=== PATIENT | male | born 1980 | race Caucasian/White ===

== ENCOUNTER 2018-08-14 12:26 | Inpatient (IN) ==
[2018-08-14] MEDS ORDERED: LOPERAMIDE 2 MG CAPSULE PO PRN (15:10)
[2018-08-14] MEDS ORDERED: cloNIDine 0.1 MG TABLET PO PRN (15:10)
[2018-08-14] MEDS ORDERED: LORazepam 2 MG/1 ML VIAL IV PRN (15:10)
[2018-08-14] MEDS ORDERED: ONDANSETRON 4 MG/2 ML VIAL IV PRN (15:10)
[2018-08-14] MEDS ORDERED: rOPINIRole 1 MG TABLET PO PRN (15:10)
[2018-08-14] MEDS ORDERED: ALUMINUM/MAGNES/SIMETH MAX STR 30 ML UDCUP PO PRN (15:10)
[2018-08-14] MEDS ORDERED: METHOCARBAMOL 500 MG TABLET PO PRN (15:10)
[2018-08-14] MEDS ORDERED: HydrOXYzine PAMOATE 25 MG CAPSULE PO PRN (15:10)
[2018-08-14] MEDS ORDERED: SENNA 8.6 MG TABLET PO PRN (15:10)
[2018-08-14] MEDS ORDERED: THIAMINE INJ 100 MG, FOLIC ACID INJ 1 MG, MULTIVITAMIN INJ 10 ML in SODIUM CHLORIDE 0.9... IV ONE (15:10)
[2018-08-14] MEDS ORDERED: BUPRENORPHINE SL TAB 2 MG TABLET SL SCH (16:00)
[2018-08-14 16:36] LABS: Basophils % 0.3 % (0.0-0.8); Eosinophils # 0.1 10*3/uL (0.0-0.87); Hematocrit 43.8 VOL% (42.0-52.0); Hemoglobin 14.9 GM/DL (14.0-18.0); Immature Granulocytes % 0.2 %; Immature Granulocytes Absolute 0.01 #; Lymphocytes # 1.8 10*3/uL (1.4-4.0); Lymphocytes % 30.1 % (21.2-54.2); Mean Corpuscular Hemoglobin 31 PG (27-34); Mean Corpuscular Volume 92.4 FL (87-102); Monocytes # 0.6 10*3/uL (0.11-0.8); Monocytes % 9.9 % (1.7-12.7); Neutrophils # 3.5 10*3/uL (1.4-7.4); Neutrophils % 58.5 % (38.7-73.9); Platelet Count 257 T/CUMM (130-400); Red Blood Count 4.74 MC/CUMM (3.8-5.5); Red Cell Distribution Width 12.1 % (9.3-17.3); White Blood Count 5.9 T/CUMM (4-12)
[2018-08-14 16:47] LABS: PT Patient Result 10.7 SECS
[2018-08-14 16:53] LABS: Albumin 4.1 G/DL (3.4-5.0); Bilirubin,Total 0.9 MG/DL (0.2-1.0); Calcium 8.9 MG/DL (8.5-10.1); Osmolality,Calculated 276.7 MOS/KG (273-304); Potassium 4.2 MMOL/L (3.5-5.1); Total Protein 7.4 G/DL (6.4-8.3)
[2018-08-14] MEDS ORDERED: GLUCAGON 1 MG VIAL IM PRN (17:21)
[2018-08-14] MEDS ORDERED: DEXTROSE 50% 25 GM/50 ML SYRINGE IV PRN (17:21)
[2018-08-14] MEDS: DICYCLOMINE 10 MG CAPSULE PO PRN (18:38)
[2018-08-14] MEDS: ACETAMINOPHEN 500 MG TABLET PO PRN (18:38)
[2018-08-14] MEDS: BUPRENORPHINE SL TAB 2 MG TABLET SL SCH (18:38)
[2018-08-14 20:43] LABS: Barbiturates Screen,Urine Negative (Negative); Benzodiazepines Screen,Urine Negative (Negative); Cannabinoid Screen,Urine Negative (Negative); Opiate Screen,Urine Positive (Negative); Phencyclidine Screen,Urine Negative (Negative)
[2018-08-14] MEDS: NICOTINE 21 MG/24 HR PATCH TRANSDERM SCH (20:48)
[2018-08-14 20:56] LABS: Apearance,Urine CLOUDY (Clear); Bilirubin,Urine Negative (Negative); Blood, Urine Negative (Negative); Glucose,Urine (UA) Negative (Negative); Ketones,Urine Negative (Negative); Nitrite,Urine Negative (Negative); Protein,Urine Negative; RBC,Urine 4 /HPF (0-4); Urine Color Yellow (Yellow); Urine Specific Gravity 1.013 (1.001-1.035); Urine Urobilinogen < 2.0 EU/DL (0.2-1.0)
[2018-08-14] MEDS: INSULIN REGULAR 100 UNIT/ML SUBCUT SCH (21:53)
[2018-08-15] MEDS: BUPRENORPHINE SL TAB 2 MG TABLET SL SCH ×4 (01:53→23:27)
[2018-08-15] MEDS: ACETAMINOPHEN 500 MG TABLET PO PRN (01:54)
[2018-08-15] MEDS: DICYCLOMINE 10 MG CAPSULE PO PRN (01:59)
[2018-08-15] MEDS: chlordiazePOXIDE 25 MG CAPSULE PO PRN ×2 (02:52→17:14)
[2018-08-15 04:42] LABS: Basophils % 0.2 % (0.0-0.8); Eosinophils # 0.1 10*3/uL (0.0-0.87); Eosinophils % 1.5 % (0.00-10.9); Hematocrit 41.5 VOL% (42.0-52.0); Hemoglobin 13.9 GM/DL (14.0-18.0); Immature Granulocytes % 0.2 %; Immature Granulocytes Absolute 0.01 #; Lymphocytes # 2.1 10*3/uL (1.4-4.0); Lymphocytes % 38.5 % (21.2-54.2); Mean Corpuscular HGB Conc 33.5 GM/DL (32-36); Mean Corpuscular Hemoglobin 31 PG (27-34); Mean Corpuscular Volume 92.4 FL (87-102); Monocytes # 0.7 10*3/uL (0.11-0.8); Monocytes % 12.5 % (1.7-12.7); Neutrophils # 2.5 10*3/uL (1.4-7.4); Neutrophils % 47.1 % (38.7-73.9); Platelet Count 223 T/CUMM (130-400); Red Blood Count 4.49 MC/CUMM (3.8-5.5); Red Cell Distribution Width 12.2 % (9.3-17.3); White Blood Count 5.4 T/CUMM (4-12)
[2018-08-15] MEDS: SODIUM CHLORIDE 0.9% 1,000 ML IV SCH ×2 (04:48→17:19)
[2018-08-15] MEDS: NICOTINE 21 MG/24 HR PATCH TRANSDERM SCH (08:16)
[2018-08-15] MEDS: THIAMINE 100 MG TABLET PO SCH (08:16)
[2018-08-15] MEDS: MULTIVITAMIN (CENTRUM) TABLET PO SCH (08:16)
[2018-08-15] MEDS: FOLIC ACID 1 MG TABLET PO SCH (08:16)
[2018-08-15] MEDS: IBUPROFEN 600 MG TABLET PO PRN (08:19)
[2018-08-15] MEDS ORDERED: VORTIOXETINE HYDROBROMIDE 20 MG PO SCH (09:00)
[2018-08-15] MEDS ORDERED: DEXTROAMPHETAMINE PO SCH (09:00)
[2018-08-15] MEDS ORDERED: AMPHETAMINE PO SCH (09:00)
[2018-08-15] MEDS: INSULIN REGULAR 100 UNIT/ML SUBCUT SCH ×4 (10:19→22:16)
[2018-08-15] MEDS: LISINOPRIL 10 MG TABLET PO SCH (10:25)
[2018-08-15] MEDS: PANTOPRAZOLE 40 MG TABLET PO SCH (10:26)
[2018-08-15] MEDS: GLIMEPIRIDE 4 MG TABLET PO SCH (12:07)
[2018-08-15] MEDS ORDERED: metFORMIN 500 MG TABLET PO SCH (17:00)
[2018-08-15] MEDS: traZODone 50 MG TABLET PO PRN (20:48)
[2018-08-16 05:15] LABS: Basophils % 0.3 % (0.0-0.8); Eosinophils # 0.1 10*3/uL (0.0-0.87); Eosinophils % 1.5 % (0.00-10.9); Hematocrit 42.3 VOL% (42.0-52.0); Immature Granulocytes % 0.3 %; Immature Granulocytes Absolute 0.02 #; Lymphocytes # 1.9 10*3/uL (1.4-4.0); Lymphocytes % 32.4 % (21.2-54.2); Mean Corpuscular HGB Conc 33.1 GM/DL (32-36); Mean Corpuscular Hemoglobin 31 PG (27-34); Mean Corpuscular Volume 94.6 FL (87-102); Mean Platelet Volume 9.1 FL (9.6-12.0); Monocytes # 0.6 10*3/uL (0.11-0.8); Monocytes % 10.2 % (1.7-12.7); Neutrophils # 3.3 10*3/uL (1.4-7.4); Neutrophils % 55.3 % (38.7-73.9); Platelet Count 238 T/CUMM (130-400); Red Blood Count 4.47 MC/CUMM (3.8-5.5); Red Cell Distribution Width 12.2 % (9.3-17.3); White Blood Count 5.9 T/CUMM (4-12)
[2018-08-16 05:38] LABS: Calcium 8.6 MG/DL (8.5-10.1); Osmolality,Calculated 276.5 MOS/KG (273-304)
[2018-08-16 05:41] LABS: Risk Ratio 5.61; VLDL CHOLESTEROL 45.8 MG/DL
[2018-08-16] MEDS: GLIMEPIRIDE 4 MG TABLET PO SCH (08:25)
[2018-08-16] MEDS: PANTOPRAZOLE 40 MG TABLET PO SCH (08:25)
[2018-08-16] MEDS: MULTIVITAMIN (CENTRUM) TABLET PO SCH (08:25)
[2018-08-16] MEDS: THIAMINE 100 MG TABLET PO SCH (08:25)
[2018-08-16] MEDS: FOLIC ACID 1 MG TABLET PO SCH (08:25)
[2018-08-16] MEDS: LISINOPRIL 10 MG TABLET PO SCH (08:25)
[2018-08-16] MEDS: BUPRENORPHINE SL TAB 2 MG TABLET SL SCH ×2 (08:25→17:47)
[2018-08-16] MEDS: ACETAMINOPHEN 500 MG TABLET PO PRN (08:26)
[2018-08-16] MEDS: NICOTINE 21 MG/24 HR PATCH TRANSDERM SCH (08:27)
[2018-08-16] MEDS: INSULIN REGULAR 100 UNIT/ML SUBCUT SCH ×4 (08:30→23:14)
[2018-08-16] MEDS ORDERED: GLIMEPIRIDE 2 MG TABLET PO SCH (08:32)
[2018-08-16] MEDS: SODIUM CHLORIDE 0.9% 1,000 ML IV SCH ×2 (09:55→12:45)
[2018-08-16] MEDS: IBUPROFEN 600 MG TABLET PO PRN ×2 (12:37→17:48)
[2018-08-16 19:44] LABS: Apearance,Urine Slightly Hazy (Clear); Bacteria,Urine Occasional /HPF (Few); Bilirubin,Urine Negative (Negative); Blood, Urine Negative (Negative); Glucose,Urine (UA) Negative (Negative); Ketones,Urine Negative (Negative); Mucus,Urine Few /LPF (Occasional); Nitrite,Urine Negative (Negative); Protein,Urine Negative; RBC,Urine <1 /HPF (0-4); Urine Color Yellow (Yellow); Urine Specific Gravity 1.023 (1.001-1.035); WBC,Urine 1 /HPF (0-6)
[2018-08-16] MEDS: traZODone 50 MG TABLET PO PRN (20:37)
[2018-08-17] MEDS: BUPRENORPHINE SL TAB 2 MG TABLET SL SCH (03:48)
[2018-08-17] MEDS: SODIUM CHLORIDE 0.9% 1,000 ML IV SCH ×2 (03:49→18:07)
[2018-08-17] MEDS: ACETAMINOPHEN 500 MG TABLET PO PRN ×2 (03:51→10:00)
[2018-08-17] MEDS: INSULIN REGULAR 100 UNIT/ML SUBCUT SCH ×3 (08:03→18:06)
[2018-08-17] MEDS: FOLIC ACID 1 MG TABLET PO SCH (09:59)
[2018-08-17] MEDS: PANTOPRAZOLE 40 MG TABLET PO SCH (10:00)
[2018-08-17] MEDS: MULTIVITAMIN (CENTRUM) TABLET PO SCH (10:00)
[2018-08-17] MEDS: LISINOPRIL 10 MG TABLET PO SCH (10:00)
[2018-08-17] MEDS: THIAMINE 100 MG TABLET PO SCH (10:00)
[2018-08-17] MEDS: NICOTINE 21 MG/24 HR PATCH TRANSDERM SCH (10:00)
[2018-08-17 13:03] VITALS: BP 121/71
== END 2018-08-17 16:02 | disposition home or self-care (01) | DRG 897 ==
LOC: N.4E 15:06 → SUATTDRO 15:06
PROVIDERS: ADMIT Internal Medicine; ATTEND Internal Medicine